=== PATIENT | male | born 1995 | race Caucasian/White ===

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

== ENCOUNTER 2017-05-15 08:42 | Emergency (ER) | payer SELFPAY ==
[~2017-05-15] VITALS: Ht 165.1 cm; Wt 55.0 kg
[~2017-05-15 08:42] MED LIST changes: -ALBU0.086 INH; -AMOX400S3 PO; -AMOX400S9 PO; +PRED50 PO; -TYLCOD5S PO; -VENTAER INH
[2017-05-15 08:43] VITALS: BP 124/61; PULSE 89; RESP 16; TEMP 98.2; O2SAT 97
--- NOTE | 2017-05-15 10:05 | PD ---
HPI Chief Complaint: Back/ Neck Pain or Injury Time Seen by Provider: 09:08 Travel History International Travel<30 days: No Contact w/Intl Traveler<30days: No Traveled to known affect area: No History of Present Illness HPI This is a 21 year old male who presents with low back pain that started yesterday after doing some heavy lifting, on the right side, constant, moderate severity, non-radiating, sharp like someone is punching him. Turning makes the pain worse and bending over. Pt. has had associated vomiting and fever since yesterday as well. PFSH Past Medical History Narrative Medical asthma Asthma: Yes Developmental Delay: No Diminished Hearing: No Respiratory: Yes (asthma) Immunizations Current: Yes Tetanus Vaccination: < 5 Years Influenza Vaccination: No Past Surgical History Oral Surgery: Yes (dental) Social History Alcohol Use: No Tobacco Use: Yes Substance Use: No Allergies-Medications (Allergen,Severity, Reaction): Coded Allergies: coconut (Unverified Allergy, Severe, 11/22/16) Reported Meds & Prescriptions Reported Meds & Active Scripts Active Prednisone 50 Mg Tab 50 Mg PO DAILY Review of Systems Except as stated in HPI: all other systems reviewed are Neg Physical Exam Narrative GENERAL:Well appearing, no acute distress SKIN: Focused skin assessment warm and dry. HEAD: Atraumatic. Normocephalic. EYES: Pupils equal and round. No injection or drainage. ENT: Moist mucous membranes NECK: Trachea midline. CARDIOVASCULAR: Regular rate and rhythm. No murmur appreciated. RESPIRATORY: Clear to auscultation. Breath sounds equal bilaterally. GASTROINTESTINAL: Abdomen soft, non-tender, nondistended. MUSCULOSKELETAL:Tender to palpation on the right. NEUROLOGICAL: Awake and alert. No obvious cranial nerve deficits. Moving all extremities. PSYCHIATRIC: Appropriate mood and affect; insight and judgment normal. Data Data Last Documented VS Vital Signs Date Time Temp Pulse Resp B/P (MAP) Pulse Ox O2 Delivery O2 Flow Rate FiO2 05/15/17 08:43 98.2 89 16 124/61 (82) 97 Orders Orders Complete Blood Count With Diff (05/15/17 09:22) Comprehensive Metabolic Panel (05/15/17 09:22) ^ Insert Iv (05/15/17 09:22) Urinalysis - C+S If Indicated (05/15/17 09:22) Sodium Chlor 0.9% 1000 Ml Inj (Ns 1000 M (2/5/18 10:15) Ketorolac Inj (Toradol Inj) (05/15/17 10:30) Ct Abd/Pel W Iv Contrast(Rout) (05/15/17 ) Oral Contrast - Adult (05/15/17 11:17) Diatrizoate Liq (Md Lowe Liq) (05/15/17 12:15) Iohexol 350 Inj (Omnipaque 350 Inj) (05/15/17 14:40) Labs Laboratory Tests Test 05/15/17 09:45 05/15/17 09:50 Urine Color YELLOW Urine Turbidity CLEAR Urine pH 6.0 Urine Specific [place] 1.029 Urine Protein TRACE mg/dL Urine Glucose (UA) NEG mg/dL Urine Ketones 10 mg/dL Urine Occult Blood TRACE Urine Nitrite NEG Urine Bilirubin NEG Urine Urobilinogen LESS THAN 2.0 MG/DL Urine Leukocyte Esterase NEG Urine RBC 1 /hpf Urine WBC LESS THAN 1 /hpf Urine Mucus MOD /lpf Microscopic Urinalysis Comment CULT NOT INDICATED White Blood Count 5.0 TH/MM3 Red Blood Count 4.37 MIL/MM3 Hemoglobin 14.2 GM/DL Hematocrit 40.0 % Mean Corpuscular Volume 91.5 FL Mean Corpuscular Hemoglobin 32.5 PG Mean Corpuscular Hemoglobin Concent 35.5 % Red Cell Distribution Width 13.0 % Platelet Count 135 TH/MM3 Mean Platelet Volume 8.8 FL CBC Comment AUTO DIFF Differential Total Cells Counted 100 Neutrophils % (Manual) 80 % Band Neutrophils % 11 % Lymphocytes % 5 % Monocytes % 4 % Neutrophils # (Manual) 4.6 TH/MM3 Differential Comment FINAL DIFF MANUAL Platelet Estimate LOW Platelet Morphology Comment NORMAL Red Cell Morphology Comment NORMAL Blood Urea Nitrogen 9 MG/DL Creatinine 0.72 MG/DL Random Glucose 93 MG/DL Total Protein 7.8 GM/DL Albumin 4.9 GM/DL Calcium Level 9.3 MG/DL Alkaline Phosphatase 51 U/L Aspartate Amino Transf (AST/SGOT) 22 U/L Alanine Aminotransferase (ALT/SGPT) 16 U/L Total Bilirubin 0.5 MG/DL Sodium Level 137 MEQ/L Potassium Level 3.9 MEQ/L Chloride Level 102 MEQ/L Carbon Dioxide Level 28.2 MEQ/L Anion Gap 7 MEQ/L Estimat Glomerular Filtration Rate 141 ML/MIN [facility] Medical Decision Making Medical Screen Exam Complete: Yes Emergency Medical Condition: Yes Interpretation(s) Afebrile, no tachycardia, normotensive No leukocytosis 11% bands 80% neutrophils Electrolytes are reassuring Urinalysis demonstrates some ketones CT abdomen and pelvis is reassuring. Differential Diagnosis Musculoskeletal back pain, nephrolithiasis, pyelonephritis, appendicitis, cholecystitis, cholelithiasis Narrative Course This is a 21-year-old male who presents to the emergency department with right- sided flank pain associated with some nausea, vomiting and fever overnight. He looks dehydrated on exam. Otherwise his pain is mostly concentrated in the right flank. Patient was placed on a monitor and an IV was established. Labs are obtained which demonstrate an 11% bandemia. CT abdomen pelvis was obtained to evaluate for atypical appendicitis which was reassuring. I think the patient has musculoskeletal back pain may have a viral syndrome. He denies any history of IV drug use. Patient will be discharged home on Zofran and naproxen and can follow-up with the primary care physician as an outpatient. Diagnosis Primary Impression: Atypical back pain Patient Instructions: General Instructions Departure Forms: Tests/Procedures, Work Release Additional Instructions: If you develop severe or worsening abdominal pain, fever>100.4, persistent vomiting or inability to eat or drink return to the emergency department immediately. Follow up with your primary care physician in 1-2 days for a check-up. Med/Other Pt SpecificInfo: Prescription(s) given Scripts Ondansetron Odt (Zofran Odt) 4 Mg Tab 4 MG SL Q6HR Y for Nausea/Vomiting, #15 TAB 0 Refills Prov: Chayito Roberts MD 05/15/17 Naproxen (Naproxen) 375 Mg Tab 375 MG PO BID Y for PAIN SCALE 4 TO 10, #15 TAB 0 Refills Prov: Chayito Roberts MD 05/15/17 Disposition: 01 DISCHARGE HOME Condition: Stable Chayito Roberts MD May 15, 2017 10:05
[2017-05-15 10:06] LABS: HEMOGLOBIN 14.2 GM/DL (13.0-17.0); MEAN CELL VOLUME 91.5 FL (80.0-100.0); MEAN CORPUSCULAR HEMOGLOBIN 32.5 PG (27.0-34.0); MEAN CORPUSCULAR HGB CONC 35.5 % (32.0-36.0); MEAN PLATELET VOLUME 8.8 FL (7.0-11.0); PLATELET COUNT 135 TH/MM3 (150-450); RED BLOOD COUNT 4.37 MIL/MM3 (4.50-5.90)
[2017-05-15 10:11] LABS: BILIRUBIN, URINE NEG (NEG); BLOOD, URINE TRACE (NEG); GLUCOSE,URINE NEG (NEG); KETONE, URINE 10 mg/dL (NEG); MUCUS URINE MOD /lpf (OCC); NITRITE,URINE NEG (NEG); URINE COLOR YELLOW (YELLW/STRAW); URINE LEUKOCYTE ESTERASE NEG (NEG)
[2017-05-15] MEDS ORDERED: SODIUM CHLOR 0.9% 1000 ML INJ 1,000 ML IV SCH (10:15)
[2017-05-15 10:25] LABS: ALBUMIN 4.9 GM/DL (3.4-5.0); ALT (GPT) 16 U/L (9-52); AST (GOT) 22 U/L (15-39); BICARBONATE 28.2 MEQ/L (21.0-32.0); BLOOD UREA NITROGEN 9 MG/DL (7-18); CALCIUM 9.3 MG/DL (8.5-10.1); CHLORIDE 102 MEQ/L (98-107); CREATININE 0.72 MG/DL (0.60-1.30); GLOMERULAR FILTRATION RATE 141 ML/MIN (>89); GLUCOSE,RANDOM 93 MG/DL (74-106); SODIUM (NA) 137 MEQ/L (136-145)
[2017-05-15 10:27] LABS: ALKALINE PHOSPHATASE 51 U/L (45-117); TOTAL BILIRUBIN ADULT 0.5 MG/DL (0.2-1.0); TOTAL PROTEIN 7.8 GM/DL (6.4-8.2)
[2017-05-15] MEDS ORDERED: KETOROLAC TROMETHAMINE 30 MG/ML (IVP) VIAL IVP ONE (10:30)
[2017-05-15 10:59] LABS: BANDS 11 % (0-6); LYMPHOCYTES 5 % (9-44); MONOCYTES 4 % (0-8); NEUTROPHIL # MANUAL DIFF 4.6 TH/MM3 (1.8-7.7); POLYS (SEG NEUTROPHILS) 80 % (16-70)
[2017-05-15] MEDS ORDERED: DIATRIZOATE MEGLUM/DIATRIZOATE SOD 9 ML CUP PO ONE (12:15)
[2017-05-15] MEDS ORDERED: IOHEXOL 350 MG/ML 10 ML VIAL (for RAD DIAG) IVCONTRAST ONE (14:40)
--- NOTE | 2017-05-15 15:09 | RADRPT ---
EXAM DATE/TIME: 05/15/2017 14:41 [facility] COMPARISON: No previous studies available for comparison. INDICATIONS : Lower abdomen pain since last night. IV CONTRAST: 86 cc Omnipaque 350 (iohexol) IV ORAL CONTRAST: Prescribed oral contrast ingested. RADIATION DOSE: 6.64 CTDIvol (mGy) MEDICAL HISTORY : None SURGICAL HISTORY : None. ENCOUNTER: Initial ACUITY: 1 day PAIN SCALE: 7/10 LOCATION: Bilateral lower quadrant TECHNIQUE: Volumetric scanning of the abdomen and pelvis was performed. Using automated exposure control and ad justment of the mA and/or kV according to patient size, radiation dose was kept as low as reasonably achievable to obtain optimal diagnostic quality images. DICOM format image data is available electro nically for review and comparison. FINDINGS: LOWER LUNGS: The visualized lower lungs are clear. LIVER: Homogeneous density without lesion. There is no dilation of the biliary tree. No calcified gallston es. SPLEEN: Normal size without lesion. PANCREAS: Within normal limits. KIDNEYS: Normal in size and shape. There is no mass, stone or hydronephrosis. ADRENAL GLANDS: Within normal limits. VASCULAR: There is no aortic aneurysm. BOWEL/MESENTERY: The stomach, small bowel, and colon demonstrate no acute abnormality. There is no free intraperitone al air or fluid. ABDOMINAL WALL: Within normal limits. RETROPERITONEUM: There is no lymphadenopathy. BLADDER: No wall thickening or mass. REPRODUCTIVE: Within normal limits. INGUINAL: There is no lymphadenopathy or hernia. MUSCULOSKELETAL: Within normal limits for patient age. CONCLUSION: 1. Negative. I don't see inflammatory changes. The appendix is normal. 2. There are no diverticuli. Jeffrey Coy MD FACR on May 15, 2017 at 15:06 Board Certified Radiologist. This report was verified electronically.
[2017-05-15] MEDS ORDERED: NAPR-855 PO (15:19)
[2017-05-15] MEDS ORDERED: ZOFR4TAB3 SL (15:19)
== END 2017-05-15 15:58 | disposition home or self-care (01) ==
LOC: NEPD 08:42
DX: M54.5 Low back pain (principal); Z72.0 Tobacco use
CPT/HCPCS: 74177; 80053; 81001; 85007; 85027; 96361; 96374; 99284; J1885; J7030; Q9963; Q9967